=== PATIENT | female | born 1955 | race Caucasian/White ===

== ENCOUNTER 2023-06-15 10:35 | Observation (INO) | payer BC, MEDICAID ==
[2023-06-13 11:57] LABS: MONOCYTES # (AUTO) 0.4 X10'3 (0-0.9); MONOCYTES % (AUTO) 7.3 % (2-12); PRE OP HEMOGLOBIN 12.1 g/dL (12.0-16.0)
[2023-06-13 11:58] LABS: BASOPHILS % (AUTO) 0.9 % (0-1); EOSINOPHILS % (AUTO) 0.5 % (0-6); LYMPHOCYTES # (AUTO) 1.4 X10'3 (1.1-4.8); LYMPHOCYTES % (AUTO) 27.9 % (21-51); MEAN CORPUSCULAR HEMOGLOBIN 30.4 PG (27.0-31.0); MEAN CORPUSCULAR HGB CONC 33.5 g/dL (33.0-36.5); MEAN CORPUSCULAR VOLUME 90.6 FL (78-98); NEUTROPHILS # (AUTO) 3.2 X10'3 (1.8-7.7); NEUTROPHILS % (AUTO) 63.4 % (42-75); PRE OP HEMATOCRIT 36.2 % (35.0-45.0); PRE OP PLATELET COUNT 279 X10'3 (140-440); RED BLOOD COUNT 3.99 X10'6 (4.20-5.60); RED CELL DISTRIBUTION WIDTH 15.5 % (11.5-14.5)
[2023-06-13 12:09] LABS: ALBUMIN 3.5 G/DL (3.4-5.0); ALKALINE PHOSPHATASE 88 IU/L (46-116); BLOOD UREA NITROGEN 9 MG/DL (7-18); BUN/CREATININE RATIO 11.3 (10.0-20.0); CALCIUM 9.2 MG/DL (8.5-10.1); CHLORIDE 102 MMOL/L (99-107); PRE OP ALT 17 U/L (30-65); PRE OP ANION GAP 7 (8-16); PRE OP AST 19 U/L (10-37); PRE OP BILIRUB, TOTAL 0.2 MG/DL (0.0-1.0); PRE OP GLUCOSE 105 MG/DL (70-104); PRE OP POTASSIUM 4.2 MMOL/L (3.4-5.1); PRE OP SODIUM 138 MMOL/L (135-145); TOTAL CARBON DIOXIDE 28.8 MMOL/L (24-32); eGFR 72 ML/MIN
[~2023-06-15] VITALS: Ht 165.1 cm; Wt 119.8 kg
[2023-06-15] VITALS (26 sets, daily range): BP systolic 128–208; BP diastolic 59–96; PULSE 16–91; RESP 13–16; TEMP 97.8–98.2; O2SAT 93–99
[~2023-06-15 10:35] MED LIST: ANAS1TAB10 PO; BIOT10TA4 PO; CALC500T63 PO; CHOL500050 PO; FLUO-103 PO; HYDR-3717 PO; HYDR4TAB55 PO; MAGN250T11 PO; PNV1TABL75 PO; SEMA0.258 SQ; ceFOXitin 2GM-NS 100mL ADDvant 100 ML IV ONE; famotidine 20mg tablet PO ONE; metroNIDAZOLE-Flagyl 500mg/NS 100ML IVPB IV ONE
[2023-06-15] MEDS: ringers solution, lacted 1,000 ML IV SCH ×2 (12:09→20:57)
[2023-06-15] MEDS ORDERED: midazolam 1 mg/ML 2ml injection ONE (13:33)
[2023-06-15] MEDS ORDERED: fentaNYL /PF 50mcg/ml 5ml ampule ONE (13:33)
[2023-06-15] MEDS ORDERED: rocuronium 10mg/ml inj IV ONE ×2 (13:33→15:27)
[2023-06-15] MEDS ORDERED: propofol inj 20 ML IV ONE (13:33)
[2023-06-15] MEDS ORDERED: LIDOCAINE 1%/EPI 1:100,000 inj. 10 ML multi-dose vial ONE (13:38)
[2023-06-15] MEDS ORDERED: CefTRIAXone 2000mg inj ONE (13:38)
[2023-06-15] MEDS ORDERED: [UNRECOGNIZED DRUG - OTHER] IV ONE (13:38)
[2023-06-15] MEDS ORDERED: METRONIDAZOLE FLAGYL IV ONE (13:38)
[2023-06-15] MEDS ORDERED: BUPIVAcaine/PF 2.5mg/ml (0.25%) 10ml vial ONE (13:39)
[2023-06-15] MEDS ORDERED: tobramycin sulfate 1.2gm vial ONE (13:39)
[2023-06-15] MEDS ORDERED: tobramycin 40mg/ml inj ONE (13:40)
[2023-06-15] MEDS ORDERED: mineral oil/petrolatum ophthal oint ONE (13:43)
[2023-06-15] MEDS ORDERED: mineral oil 10ml sterile, topical TP ONE ×2 (13:44→16:01)
[2023-06-15] MEDS ORDERED: sevoflurane 250ml liquid IH ONE (13:54)
[2023-06-15] MEDS ORDERED: HYDROmorphone/PF 0.2 MG/ML SYRINGE IV PRN ×2 (15:10)
[2023-06-15] MEDS ORDERED: ringers solution, lacted 1,000 ML IV SCH (15:10)
[2023-06-15] MEDS ORDERED: hydrALAZINE 20mg/ml inj. IV PRN (15:10)
[2023-06-15] MEDS ORDERED: ondansetron/PF 4mg/2ml inj IV PRN ×2 (15:10→16:15)
[2023-06-15] MEDS ORDERED: meperidine/PF 25mg/ml syringe IV PRN ×3 (15:10)
[2023-06-15] MEDS ORDERED: dexamethasone sod phosphate 4mg/ml inj. ONE (15:27)
[2023-06-15] MEDS ORDERED: ondansetron/PF 4mg/2ml inj ONE (15:28)
[2023-06-15] MEDS ORDERED: acetaminophen 1,000mg/100ml IV 100 ML IV ONE (15:59)
[2023-06-15] MEDS ORDERED: neostigmine methylsulfate 1 MG/ML 10ml vial ONE (16:10)
[2023-06-15] MEDS ORDERED: glycopyrrolate 0.2mg/ml inj ONE (16:10)
[2023-06-15] MEDS ORDERED: naloxone 0.4 mg/ml inj IV PRN (16:15)
[2023-06-15] MEDS ORDERED: sugammadex 200mg/2ml injection IV ONE (16:24)
--- NOTE | 2023-06-15 16:35 | NUR ---
Received from OR via , accompanied by Anesthesiologist and report given by Anesthesiolgist. PATIENT A&OX4, DENIES PAIN, V/S WNL, SCD ON , PIV 20G LUE, NO DRESSINGS OR DRAINAGE, F/C DRAINING CLEAR YELLOW URINE.
[2023-06-15] MEDS: labetalol 20mg/4ml (5mg/ml) syringe IV PRN ×2 (16:56→16:58)
[2023-06-15] MEDS: acetaminophen 1,000mg/100ml IV 100 ML IV PRN ×2 (16:57→16:58)
--- NOTE | 2023-06-15 18:25 | NUR ---
PATIENT A&OX4, DENIES PAIN, V/S WNL, SCD ON , PIV 20G LUE, NO DRESSINGS OR DRAINAGE, F/C DRAINING CLEAR YELLOW URINE. patient taken to ortho with all belongings and hooked up to monitors in room and report given to rn who has taken over patient care.
[2023-06-15] MEDS: HYDROcodone/acetaminophen 5mg/325mg tablet PO PRN (20:43)
[2023-06-15] MEDS: potassium CL 20mEq in D5-1/2NS 1,000 ML IV SCH (21:23)
[2023-06-16] VITALS: BP 138/78; PULSE 85; O2SAT 95
[2023-06-16] MEDS: HYDROcodone/acetaminophen 5mg/325mg tablet PO PRN ×3 (00:35→08:31)
[2023-06-16] MEDS: ceFOXitin 1 GM/D5W 50mL IVPB 100 ML IV SCH ×2 (00:36→08:00)
[2023-06-16] MEDS: metroNIDAZOLE-Flagyl 500mg/NS 100 ML IV SCH ×2 (01:40→09:04)
[2023-06-16] MEDS ORDERED: hydrOXYzine 10 MG tablet PO PRN (02:20)
[2023-06-16] MEDS ORDERED: HYDROmorphone 2mg tablet PO PRN (02:30)
[2023-06-16 04:00] VITALS: BP 140/82; PULSE 80; O2SAT 96
[2023-06-16] MEDS: potassium CL 20mEq in D5-1/2NS 1,000 ML IV SCH (04:47)
[2023-06-16 06:53] LABS: BASOPHILS % (AUTO) 0.2 % (0-1); EOSINOPHILS % (AUTO) 0 % (0-6); HEMATOCRIT 35.5 % (35.0-45.0); HEMOGLOBIN 11.8 g/dl (12.0-16.0); LYMPHOCYTES % (AUTO) 13.3 % (21-51); MEAN CORPUSCULAR HEMOGLOBIN 29.9 PG (27.0-31.0); MEAN CORPUSCULAR HGB CONC 33.2 g/dL (33.0-36.5); MEAN CORPUSCULAR VOLUME 90.3 FL (78-98); MEAN PLATELET VOLUME 7.9 FL (7.4-10.4); MONOCYTES # (AUTO) 0.4 X10'3 (0-0.9); NEUTROPHILS # (AUTO) 6.2 X10'3 (1.8-7.7); NEUTROPHILS % (AUTO) 81.5 % (42-75); PLATELET COUNT 269 X10'3 (140-440); RED BLOOD COUNT 3.93 X10'6 (4.20-5.60); RED CELL DISTRIBUTION WIDTH 15.5 % (11.5-14.5); WHITE BLOOD COUNT 7.6 X10'3 (4.5-11.0)
[2023-06-16 06:56] LABS: ANION GAP 5 (8-16); BLOOD UREA NITROGEN 6 MG/DL (7-18); BUN/CREATININE RATIO 7.9 (10.0-20.0); CALCIUM 9.4 MG/DL (8.5-10.1); CHLORIDE 104 MMOL/L (99-107); CREATININE 0.76 MG/DL (0.40-0.90); GLUCOSE 140 MG/DL (70-104); POTASSIUM 3.8 MMOL/L (3.5-5.1); SODIUM 138 MMOL/L (135-145); TOTAL CARBON DIOXIDE 29.2 MMOL/L (24-32); eCRCL 66 ML/MIN; eGFR 76 ML/MIN
[2023-06-16 07:02] VITALS: BP 130/64; PULSE 83; RESP 16; TEMP 98; O2SAT 98
[2023-06-16] MEDS ORDERED: anastrozole 1 MG tablet PO SCH (08:00)
[2023-06-16] MEDS ORDERED: calcium carbonate 500mg tablet PO SCH (08:00)
[2023-06-16] MEDS ORDERED: FLUoxetine 10mg capsule PO SCH (08:00)
[2023-06-16] MEDS ORDERED: multivitamins, therapeutics tablet PO SCH (08:00)
[2023-06-16] MEDS ORDERED: magnesium oxide 400mg tablet PO SCH (08:00)
[2023-06-16] MEDS ORDERED: cholecalciferol (vitamin D3) 1,000 unit (25mcg) tablet PO SCH (08:00)
[2023-06-16 09:31] VITALS: RESP 16
--- NOTE | 2023-06-16 14:36 | NUR ---
GENERAL SUPERINTENDENT documentation: I have reviewed and agree with all interventions, assessments performed and documented by Latonya LOVELL
== END 2023-06-16 13:40 | disposition home or self-care (01) ==
LOC: PAS 10:35 → ORTHO 4S 16:19 → INTOOBSV 16:19
PROVIDERS: ADMIT Colon & Rectal Surgery; ATTEND Colon & Rectal Surgery
DX: K63.5 Polyp of colon (principal); C50.811 Malignant neoplasm of overlapping sites of right female breast; K62.89 Other specified diseases of anus and rectum; J45.909 Unspecified asthma, uncomplicated; G47.30 Sleep apnea, unspecified; E11.9 Type 2 diabetes mellitus without complications; E66.9 Obesity, unspecified; G43.909 Migraine, unspecified, not intractable, without status migrainosus; M19.90 Unspecified osteoarthritis, unspecified site; F41.9 Anxiety disorder, unspecified; Z85.3 Personal history of malignant neoplasm of breast; Z87.891 Personal history of nicotine dependence; Z79.899 Other long term (current) drug therapy
CPT/HCPCS: 36415; 45338; 71046; 80048; 80053; 82948; 85025; 86885; 86900; 86901; 93005; 96365; 96366; 96367; 96375; G0378; J0131; J0360; J0694; J1100; J2250; J2405; J2704; J2710; J3010; J3260; J3480; J3490; J7120; A4402; A4615; A4618; A6449; A7000; C1889; J0696